=== PATIENT | female | born 2000 | race Caucasian/White ===

== ENCOUNTER 2023-12-31 00:41 | Emergency (ER) | payer OTHER ==
[~2023-12-31] VITALS: Ht 162.6 cm; Wt 114.0 kg
[2023-12-31 01:06] VITALS: O2SAT 100
[2023-12-31] MEDS ORDERED: CEPH500T MT (02:14)
[2023-12-31] MEDS ORDERED: PYR200 MT (02:14)
[2023-12-31 02:28] LABS: CLARITY URINE CLOUDY (CLEAR); COLOR URINE YELLOW (YELLOW); GLUCOSE URINE NEGATIVE (NEGATIVE); KETONES URINE NEGATIVE (NEGATIVE); LEUKOCYTE ESTERASE URINE 2+ (NEGATIVE); NITRITE URINE POSITIVE (NEGATIVE); OCCULT BLOOD URINE 3+ (NEGATIVE); PROTEIN URINE 1+ (NEGATIVE); SPECIFIC GRAVITY URINE 1.014 (1.005-1.030)
[2023-12-31 02:38] VITALS: BP 139/69; PULSE 88; RESP 17; TEMP 98
[2023-12-31] MEDS ORDERED: CEFP100S5 MT (02:48)
[2023-12-31 04:30] LABS: RBC URINE 25-50 /hpf (0-2); WBC URINE 50-100 /hpf (0-2)
[2023-12-31 04:31] LABS: BACTERIA URINE 2+; SQUAMOUS EPITHELIAL CELL URINE 1+ /lpf (RARE/1+)
== END 2023-12-31 02:40 | disposition home or self-care (01) ==
LOC: ER 00:41
DX: N39.0 Urinary tract infection, site not specified (principal)
CPT/HCPCS: 81003; 81025; 87077; 87186; 99283